=== PATIENT | male | born 1960 | race African-American/Black ===

== ENCOUNTER → 2020-03-10 | Day surgery (SDC) | payer BC ==
--- NOTE | 2020-03-05 14:55 | Opthalmology H&P ---
Ophthalmology H&P H&P Chief Complaint: decreased vision in left eye HPI Vision Affects Ability to: read, manage personal affairs Past Ocular History: glaucoma - Moderate OU, other - Dry eye syndrome OU HPI Narrative Blurry Vision Exam Visual Acuity: OD 20/40 OS 20/125-2 Tension: OD 17 OS 16 Eye Exam: normal OU: external exam, palpebral fissure-width, marginal reflex distance, levator function, corneas, anterior chambers; findings: lens - Cortical cataracts OU, fundus exam - Moderate glaucoma OU Assessment/Plan Treatment Plan: cataract extraction w/ lens implant Goals of Treatment: improvement of vision, enhance quality of life Attestation Attestation The risks and benefits of the surgery as well as alternative procedures were explained to the patient in detail. Kel Norton MD Mar 05, 2020 14:55
--- NOTE | 2020-03-05 14:56 | Pre-Procedure Note/Attestation ---
Pre-Procedure Note/Attestation Complete Prior to Procedure Planned Procedure: left Procedure Narrative: Cataract extraction with intraocular lens implant left eye Indications for Procedure Pre-Operative Diagnosis: Cortical cataract left eye Attestation I attest that I discussed the nature of the procedure; its benefits; risks and complications; and alternatives (and the risks and benefits of such alternatives ), prior to the procedure, with the patient (or the patient's legal surgical device sales representative). I attest that, if there was a reasonable possibility of needing a blood transfusion, the patient (or the patient's legal surgical device sales representative) was given the [facility] standardized written summary, pursuant to the [place] Blood Safety Act ([place] Health and Safety Code # 1645, as amended). I attest that I re-evaluated the patient just prior to the surgery and that there has been no change in the patient's H&P, except as documented below: Kel Norton MD Mar 05, 2020 14:56
[2020-03-06 08:46] LABS: HEMATOCRIT 38.1 % (42.0-52.0); HEMOGLOBIN 12.7 G/DL (14.2-18.0); MEAN CORPUSCULAR VOLUME 84 FL (80-99); PLATELET COUNT 228 K/UL (150-450); RED BLOOD COUNT 4.51 M/UL (4.70-6.10); RED CELL DISTRIBUTION WIDTH 13.7 % (11.6-14.8)
[2020-03-06 08:57] LABS: ANION GAP 7 mmol/L (5-15); BLOOD UREA NITROGEN 23 mg/dL (7-18); CALCIUM 9.6 MG/DL (8.5-10.1); CARBON DIOXIDE 30 MMOL/L (21-32); CHLORIDE 100 MMOL/L (98-107); CREATININE 1.7 MG/DL (0.55-1.30); POTASSIUM 4.4 MMOL/L (3.5-5.1); SODIUM 137 MMOL/L (136-145)
--- NOTE | 2020-03-06 11:00 | Diagnostic Imaging Report ---
Indication: Shortness of breath Technique: 2 views of the chest Comparison: None Findings: The right lung apex is cut off of the exam. Lungs and pleural spaces are clear. The heart size is normal. There is minimal thoracic scoliotic deformity. No significant interim change. Impression: No acute process
[~2020-03-10] VITALS: Ht 188 cm; Wt 130.6 kg
[2020-03-10] VITALS (8 sets, daily range): BP systolic 112–131; BP diastolic 56–73
[~2020-03-10] MED LIST: Akten 3.5% 1ml Btl LEFT EYE ONE; BSS 15ml BTL ONE; BSS 500ml btl ONE; EDARBYCLOR 40-1 EACH ORAL; EPINEPHrine 1mg/1ml Amp ONE; LR 1000ml 1,000 ML IVLG SCH; LR 1000ml ONE; Midazolam 2mg/2ml Inj ONE; NS Irrig 1000ml ONE; Pilocarpine 1% Opth 15ml Soln ONE; Polysporin Oint 15gm TOPIC ONE; Povidone-Iodine 5% opth solution ONE; Proparacaine 0.5% Opth Soln 15ml LEFT EYE ONE; SYSTANE 0.3-0.415 ML OP; Sodium Hyaluronate 10 mg/ml 0.85ml ONE; Sterile Water Irrig 1000ml IRRIG ONE; Tetracaine 0.5% Opth 4ml Soln LEFT EYE ONE; acetaZOLAMIDE 500mg Inj ONE; fentaNYL 100 mcg/2 mL IV ONE; fentaNYL 100 mcg/2 mL IV PRN; prednisoLONE acetate 1% Opth Susp 1ml ONE
[2020-03-10] MEDS: Phenylephrine 10% Opth Soln 5ml LEFT EYE SCH ×3 (08:53→09:18)
[2020-03-10] MEDS: Tropicamide 1% Opth 15ml Soln LEFT EYE SCH ×3 (08:53→09:18)
[2020-03-10] MEDS: Tobramycin Op Soln 0.3% 5ml LEFT EYE SCH ×3 (08:54→09:18)
[2020-03-10] MEDS: Cyclopentolate 1% Opth Sol 2ml LEFT EYE SCH ×3 (08:54→09:18)
[2020-03-10] MEDS: Diclofenac Sod 0.1% Op Soln LEFT EYE SCH ×3 (08:54→09:18)
--- NOTE | 2020-03-10 11:16 | Anethesia Preoperative Eval ---
Anesthesia Pre-op PMH/ROS General Date of Evaluation: Mar 10, 2020 Time of Evaluation: 10:40 Anesthesiologist: Agatha ASA Score: ASA 3 Mallampati Score Class I : Soft palate, uvula, fauces, pillars visible Class II: Soft palate, uvula, fauces visible Class III: Soft palate, base of uvula visible Class IV: Only hard plate visible Mallampati Classification: Class III Surgeon: Cierra Diagnosis: L eye cataract Surgical Procedure: Cataract extraction Anesthesia History: none Family History: no anesthesia problems Allergies: Coded Allergies: PENICILLINS (Verified Allergy, Intermediate, rash, 03/06/20) POLLEN EXTRACTS (Verified Allergy, Intermediate, "runny nose", 03/10/20) Medications: see eMAR Patient NPO?: Yes Past Medical History Cardiovascular: Reports: HTN; Denies: CAD, VT, valve dz, arrhythmia, other Pulmonary: Reports: JIM; Denies: asthma, COPD, other Gastrointestinal/Genitourinary: Reports: GERD; Denies: CRI, ESRD, other Neurologic/Psychiatric: Denies: dementia, CVA, depression/anxiety, TIA, other Endocrine: Denies: DM, hypothyroidism, steroids, other HEENT: Reports: cataract (L), cataract (R) Hematology/Immune: Denies: anemia, DVT, bleeding disorder, other Musculoskeletal/Integumentary: Denies: OA, RA, DJD, DDD, edema, other Other: obesity PMH Narrative: as above PSxH Narrative: Hernia repair Anesthesia Pre-op Phys. Exam Physician Exam Last Vital Signs Date Time Temp Pulse Resp B/P (MAP) Pulse Ox O2 Delivery O2 Flow Rate FiO2 03/10/20 09:13 97.9 71 18 112/65 100 Room Air Constitutional: NAD Neurologic: CN 2-12 intact Cardiovascular: RRR, no M/R/G Respiratory: CTA Gastrointestinal: other - obesity Airway Exam Mallampati Score: Class III MO: full Neck: short ROM: limited Teeth: intact Dentures: no upper, no lower Anesthesia Pre-op A/P Labs see chart Studies Pre-op Studies: EKG - SR Risk Assessment & Plan Assessment: ASA 3 Plan: MAC Status Change Before Surgery: No Pre-Antibiotics Drug: none Isaac Snider MD Mar 10, 2020 11:16
--- NOTE | 2020-03-10 11:42 | Immediate Post-Op Evaluation ---
Immediate Post-Op Evalulation Immediate Post-Op Evalulation Procedure: L eye cataract extraction with IOL Date of Evaluation: Mar 10, 2020 Time of Evaluation: 11:41 IV Fluids: 400 Blood Products: none Estimated Blood Loss: none Urinary Output: none Blood Pressure Systolic: 126 Blood Pressure Diastolic: 70 Pulse Rate: 68 Respiratory Rate: 20 O2 Sat by Pulse Oximetry: 98 Temperature (Fahrenheit): 97.6 Pain Score (1-10): 1 Nausea: No Vomiting: No Complications none Patient Status: awake, patent, none Hydration Status: adequate Isaac Snider MD Mar 10, 2020 11:42
--- NOTE | 2020-03-10 12:15 | 48 Hour Post Anesthesia Eval ---
Post Anesthesia Evaluation Procedure: L eye cataract extraction with IOL Date of Evaluation: Mar 10, 2020 Time of Evaluation: 12:13 Blood Pressure Systolic: 128 0: 76 Pulse Rate: 68 Respiratory Rate: 20 Temperature (Fahrenheit): 97.8 O2 Sat by Pulse Oximetry: 99 Airway: patent Nausea: No Vomiting: No Pain Intensity: 1 Hydration Status: adequate Cardiopulmonary Status: stable Mental Status/LOC: patient returned to baseline Follow-up Care/Observations: n/a Post-Anesthesia Complications: none Follow-up care needed: ready to discharge Isaac Snider MD Mar 10, 2020 12:15
--- NOTE | 2020-03-10 15:27 | Brief Operative Note ---
Immediate Post Operative Note Operative Note Chief Complaint: Blurry vision Pre-op Diagnosis: Cortical cataract left eye Procedure: Cataract extraction with IOL implant left eye Post-op Diagnosis: Pseudophakia OS Findings: consistent w/pre-op dx studies Surgeon: Kel Norton MD Anesthesiologist: Isaac Snider MD Anesthesia: MAC Specimen: none Complications: none Condition: stable Fluids: LR Estimated Blood Loss: none Drains: none Implant(s) used?: Yes - IOL-OS Kel Norton MD Mar 10, 2020 15:27
--- NOTE | 2020-03-10 15:30 | Operative Note - PDOC ---
Operative Note Operative Note Date of Operation/Procedure: Mar 10, 2020 Chief Complaint: Blurry vision Pre-op Diagnosis: Cortical cataract left eye Procedure: Cataract extraction with IOL implant left eye Post-op Diagnosis: Pseudophakia OS Operative Findings: consistent w/pre-op dx studies Surgeon: Kel Norton MD Anesthesiologist: Isaac Snider MD Anesthesia: MAC Specimen: none Complications: none Condition: stable Fluids: LR Estimated Blood Loss: none Drains: none Implant(s) used?: Yes - IOL-OS Indications for Procedure Cortical cataract left eye Description of Procedure This patient has been complaining visually significant cataract in the left eye with the best corrected visual acuity of 20/125-2 under moderate glare conditions worse. The patient complains of difficulties with glare in performing activities of daily living and wants to manage personal affairs with comfort and accuracy and see well enough to move with safety at home and outdoors. The risks, benefits and alternatives of the procedure were discussed with the patient in the office prior to scheduling surgery. All questions from the patient were answered after the surgical procedure was explained in detail. The risks of the procedure as explained to the patient include, but are not limited to, pain, infection, bleeding, loss of vision, retinal detachment, need for further surgery, loss of lens nucleus, double vision, etc. Alternative procedures were discussed which include, to do nothing or seek a second opinion. Informed consent for this procedure was obtained from the patient. The patient was referred to a primary care physician for a cardiopulmonary clearance prior to surgery, after proper evaluation was done patient was properly scheduled for outpatient surgery. The patient was brought to the operating room where the anesthesiologist established I.V. lines and cardiac monitoring leads. Mild intravenous sedation was administered. The patient was then prepared with a 5% solution of povidone -iodine to the conjunctival fornix and lashes, and a 5% solution of povidone- iodine to the lids and periorbital skin. The patient was then draped in the usual sterile fashion. A lid speculum was then placed in the operative eye. A keratome blade was then used to create a biplanar incision into the anterior chamber. Viscoelastics was then instilled into the anterior chamber. A capsulorrhexis was then fashioned with an utrata forceps A G 27 cannula was used to hydrodissect and hydro delineate the lens nucleus. Paracentesis incision was made at 3 o'clock with sharp blade. The phacoemulsification unit, after being properly adjusted and tested, was then used to emulsify the nucleus followed by aspiration and irrigation of residual cortical material. Healon was then instilled into the anterior chamber. The corneal wound was then enlarged to the size of the optic with the sneha keratome blade. The intraocular lens was then inspected for right power and size and thought to be satisfactory. Then the lens was gently placed in the capsular bag. Positioning within the capsular bag was confirmed by direct visualization. Optic centration was accomplished with a Sins[place] hook. Viscoelastics was removed from the anterior chamber using the irrigation and aspiration unit. The corneal wound was then tested for leaks and none were found. The lid speculum were then removed. Sponge and needle counts were correct. An eye patch and shield were placed over the operative eye. The patient was taken to the recovery room in stable condition. There were no complications. The patient tolerated the procedure well. The patient was then transferred to the ambulatory surgery unit in stable and satisfactory condition , was given detailed written instructions and asked to follow up in the office the next day Kel Norton MD Mar 10, 2020 15:30
== END | disposition home or self-care (01) ==
LOC: SUR 07:06
DX: H25.012 Cortical age-related cataract, left eye (principal); H04.129 Dry eye syndrome of unspecified lacrimal gland; H40.9 Unspecified glaucoma; Z88.0 Allergy status to penicillin; I10 Essential (primary) hypertension; K21.9 Gastro-esophageal reflux disease without esophagitis; E66.9 Obesity, unspecified; G47.33 Obstructive sleep apnea (adult) (pediatric); Z68.37 Body mass index [BMI] 37.0-37.9, adult; R06.02 Shortness of breath
CPT/HCPCS: 36415; 66984; 71046; 80048; 85007; 85025; 85610; 85730; 93005; 94003; J0171; J1100; J1120; J2250; J2704; J3010; J3370; J7120; V2632; 94150